=== PATIENT | female | born 1955 | race African-American/Black ===

== ENCOUNTER 2017-08-16 16:31 | Inpatient (IN) ==
[2017-08-16] MEDS ORDERED: hydrALAZINE 20 MG/1 ML VIAL IV STA (17:09)
[2017-08-16] MEDS ORDERED: hydrALAZINE 20 MG/1 ML VIAL ONE (17:09)
[2017-08-16] MEDS ORDERED: LORazepam 2 MG/1 ML VIAL ONE (17:48)
[2017-08-16] MEDS ORDERED: GLUCAGON 1 MG VIAL IM PRN (18:12)
[2017-08-16] MEDS ORDERED: DEXTROSE 50% 25 GM/50 ML VIAL IV PRN (18:12)
[2017-08-16] MEDS ORDERED: LORazepam 2 MG/1 ML VIAL IV STA (18:26)
[2017-08-16 18:28] LABS: ABG Base Excess 1.8 MMOL/L (-2.5-2.5); ABG Oxygen Saturation 97.8 % (95-100); ABG PCO2 40.7 MM HG (35-48); ABG PH 7.419 (7.35-7.45); ABG PO2 97.4 MM HG (80-95); ABG TCO2 23.7 MMOL/L (23-27); Allen Test Positive
[2017-08-16 18:36] LABS: Basophils % 0.3 % (0.0-0.8); Eosinophils % 0.6 % (0.00-10.9); Hematocrit 33.3 VOL% (35.7-47.0); Hemoglobin 11.1 GM/DL (12.0-16.0); Immature Granulocytes % 0.6 %; Immature Granulocytes Absolute 0.04 #; Lymphocytes % 13.3 % (21.3-54.2); Mean Corpuscular HGB Conc 33.3 GM/DL (32-36); Mean Corpuscular Hemoglobin 28 PG (27-34); Mean Corpuscular Volume 83.3 FL (87-102); Mean Platelet Volume 10.6 FL (9.6-12.0); Monocytes # 0.3 10*3/uL (0.11-0.8); Monocytes % 3.9 % (1.7-12.7); Neutrophils # 5.8 10*3/uL (1.4-7.4); Neutrophils % 81.3 % (38.7-73.9); Platelet Count 302 T/CUMM (130-400); Red Cell Distribution Width 17.3 % (9.3-17.3); White Blood Count 7.2 T/CUMM (4-12)
[2017-08-16 18:59] LABS: Lactic Acid 1.2 MMOL/L (0.4-2.0)
[2017-08-16 19:06] LABS: Alanine Aminotransferase 17 U/L (13-56); Albumin 2.7 G/DL (3.4-5.0); Alkaline Phosphatase 156 U/L (45-117); Aspartate Amino Transferase 21 U/L (0-37); Bilirubin,Total < 0.39 MG/DL (0.2-1.0); Blood Urea Nitrogen 31 MG/DL (7-18); Glucose 208 MG/DL (74-106); Osmolality,Calculated 291.4 MOS/KG (273-304); Potassium 3.8 MMOL/L (3.5-5.1); Sodium 140 MMOL/L (136-145); Total Protein 7.5 G/DL (6.4-8.3); Troponin I Only < 0.015 NG/ML (0.00-0.045)
[2017-08-16] MEDS ORDERED: cefTRIAXone 1,000 MG in SYRINGE 1 EACH IV SCH (19:45)
[2017-08-16 19:51] LABS: Apearance,Urine CLOUDY (Clear); Bacteria,Urine Few /HPF (Few); Bilirubin,Urine Negative (Negative); Blood, Urine Large mg/dL (Negative); Glucose,Urine (UA) >=500 mg/dL (Negative); Ketones,Urine Negative (Negative); Nitrite,Urine Positive (Negative); Protein,Urine >=500 MG/DL; RBC,Urine 968 /HPF (0-4); Urine Color Amber (Yellow); Urine Specific Gravity 1.018 (1.001-1.035); Urine Urobilinogen < 2.0 EU/DL (0.2-1.0); WBC,Urine 178 /HPF (0-6)
[2017-08-16 20:27] LABS: Barbiturates Screen,Urine Negative (Negative); Benzodiazepines Screen,Urine Negative (Negative); Cannabinoid Screen,Urine Negative (Negative); Opiate Screen,Urine Negative (Negative); Phencyclidine Screen,Urine Negative (Negative)
[2017-08-16] MEDS ORDERED: ONDANSETRON 4 MG/2 ML VIAL IV PRN (20:30)
[2017-08-16] MEDS ORDERED: INSULIN LISPRO 100 UNIT/ML SUBCUT SCH (21:00)
[2017-08-16] MEDS: NICARDIPINE IV SCH (21:21)
[2017-08-16] MEDS: SODIUM CHLORIDE 0.45% IV SCH (21:21)
[2017-08-16] MEDS: SODIUM CHLORIDE 0.9% 1,000 ML IV SCH (21:54)
[2017-08-17] MEDS: INSULIN LISPRO 100 UNIT/ML SUBCUT SCH ×4 (00:04→18:14)
[2017-08-17] MEDS: NICARDIPINE IV SCH ×2 (04:23→10:44)
[2017-08-17] MEDS: SODIUM CHLORIDE 0.45% IV SCH ×2 (04:23→10:44)
[2017-08-17 05:41] LABS: Basophils % 0.1 % (0.0-0.8); Hematocrit 30.5 VOL% (35.7-47.0); Hemoglobin 10.1 GM/DL (12.0-16.0); Immature Granulocytes % 0.7 %; Immature Granulocytes Absolute 0.07 #; Lymphocytes % 10.4 % (21.3-54.2); Mean Corpuscular HGB Conc 33.1 GM/DL (32-36); Mean Corpuscular Hemoglobin 28 PG (27-34); Mean Corpuscular Volume 83.8 FL (87-102); Mean Platelet Volume 11.2 FL (9.6-12.0); Monocytes # 0.3 10*3/uL (0.11-0.8); Monocytes % 3.4 % (1.7-12.7); Neutrophils # 8.2 10*3/uL (1.4-7.4); Neutrophils % 85.4 % (38.7-73.9); Platelet Count 329 T/CUMM (130-400); Red Blood Count 3.64 MC/CUMM (3.8-5.5); Red Cell Distribution Width 17.6 % (9.3-17.3); White Blood Count 9.6 T/CUMM (4-12)
[2017-08-17 06:08] LABS: Calcium 9.6 MG/DL (8.5-10.1); Osmolality,Calculated 300.1 MOS/KG (273-304); Potassium 3.9 MMOL/L (3.5-5.1)
[2017-08-17] MEDS: SODIUM CHLORIDE 0.9% 1,000 ML IV SCH ×3 (06:34→22:10)
[2017-08-17 08:09] LABS: Risk Ratio 2.64; Thyroid Stimulating Hormone 1.62 uIU/ml (0.358-3.74); VLDL CHOLESTEROL 17.8 MG/DL
[2017-08-17] MEDS ORDERED: LORazepam 2 MG/1 ML VIAL IV PRN (09:56)
[2017-08-17] MEDS: cefTRIAXone 2,000 MG in SYRINGE 1 EACH IV SCH ×2 (11:37→22:09)
[2017-08-17] MEDS: ACYCLOVIR INJ 500 MG in SODIUM CHLORIDE 0.9% 100 ML IV SCH ×2 (11:44→22:10)
[2017-08-17] MEDS: AMPICILLIN INJ 2,000 MG in SODIUM CHLORIDE 0.9% 100 ML IV SCH ×2 (11:44→17:59)
[2017-08-18] MEDS: INSULIN LISPRO 100 UNIT/ML SUBCUT SCH ×5 (01:09→21:55)
[2017-08-18] MEDS: AMPICILLIN INJ 2,000 MG in SODIUM CHLORIDE 0.9% 100 ML IV SCH ×3 (02:50→17:10)
[2017-08-18] MEDS: SODIUM CHLORIDE 0.9% 1,000 ML IV SCH ×2 (06:28→13:39)
[2017-08-18] MEDS ORDERED: INFLUENZA VIRUS VACCINE 0.5 ML SYRINGE IM ONE (09:23)
[2017-08-18] MEDS: METOPROLOL SUCCINATE XL 100 MG TABLET PO SCH (09:42)
[2017-08-18] MEDS: cefTRIAXone 2,000 MG in SYRINGE 1 EACH IV SCH ×2 (09:49→21:54)
[2017-08-18] MEDS: ACYCLOVIR INJ 500 MG in SODIUM CHLORIDE 0.9% 100 ML IV SCH ×2 (09:59→21:57)
[2017-08-18] MEDS: GABAPENTIN 300 MG CAPSULE PO SCH (21:54)
[2017-08-19] MEDS: SODIUM CHLORIDE 0.9% 1,000 ML IV SCH ×2 (00:20→18:01)
[2017-08-19] MEDS: AMPICILLIN INJ 2,000 MG in SODIUM CHLORIDE 0.9% 100 ML IV SCH ×3 (02:06→18:13)
[2017-08-19 05:42] LABS: Basophils % 0.5 % (0.0-0.8); Eosinophils # 0.2 10*3/uL (0.0-0.87); Hematocrit 30.2 VOL% (35.7-47.0); Hemoglobin 9.6 GM/DL (12.0-16.0); Immature Granulocytes % 0.2 %; Immature Granulocytes Absolute 0.01 #; Lymphocytes # 1.2 10*3/uL (1.4-4.0); Lymphocytes % 20.2 % (21.3-54.2); Mean Corpuscular HGB Conc 31.8 GM/DL (32-36); Mean Corpuscular Hemoglobin 28 PG (27-34); Mean Corpuscular Volume 86.5 FL (87-102); Mean Platelet Volume 10.1 FL (9.6-12.0); Monocytes # 0.6 10*3/uL (0.11-0.8); Monocytes % 10.1 % (1.7-12.7); Neutrophils # 3.8 10*3/uL (1.4-7.4); Platelet Count 239 T/CUMM (130-400); Red Blood Count 3.49 MC/CUMM (3.8-5.5); Red Cell Distribution Width 17.5 % (9.3-17.3); White Blood Count 5.7 T/CUMM (4-12)
[2017-08-19 06:16] LABS: Alanine Aminotransferase 13 U/L (13-56); Alkaline Phosphatase 102 U/L (45-117); Aspartate Amino Transferase 15 U/L (0-37); Bilirubin,Total < 0.39 MG/DL (0.2-1.0); Blood Urea Nitrogen 42 MG/DL (7-18); Calcium 8.7 MG/DL (8.5-10.1); Glucose 188 MG/DL (74-106); Osmolality,Calculated 296.3 MOS/KG (273-304); Potassium 3.7 MMOL/L (3.5-5.1); Sodium 141 MMOL/L (136-145); Total Protein 5.3 G/DL (6.4-8.3)
[2017-08-19] MEDS: ACYCLOVIR INJ 500 MG in SODIUM CHLORIDE 0.9% 100 ML IV SCH ×2 (11:10→21:27)
[2017-08-19] MEDS: METOPROLOL SUCCINATE XL 100 MG TABLET PO SCH (11:13)
[2017-08-19] MEDS: GABAPENTIN 300 MG CAPSULE PO SCH ×2 (11:13→21:25)
[2017-08-19] MEDS: CLOPIDOGREL 75 MG TABLET PO SCH (11:13)
[2017-08-19] MEDS: INSULIN LISPRO 100 UNIT/ML SUBCUT SCH ×4 (11:15→21:26)
[2017-08-19] MEDS: cefTRIAXone 2,000 MG in SYRINGE 1 EACH IV SCH ×2 (11:16→21:29)
[2017-08-19] MEDS ORDERED: NIFEdipine 10 MG CAPSULE PO PRN (11:58)
[2017-08-19] MEDS: cloNIDine 0.1 MG TABLET PO SCH ×2 (12:38→21:25)
[2017-08-20] MEDS: hydrALAZINE 20 MG/1 ML VIAL IV PRN ×2 (00:17→12:16)
[2017-08-20] MEDS: SODIUM CHLORIDE 0.9% 1,000 ML IV SCH (02:32)
[2017-08-20] MEDS: AMPICILLIN INJ 2,000 MG in SODIUM CHLORIDE 0.9% 100 ML IV SCH ×3 (02:52→18:46)
[2017-08-20 05:57] LABS: Basophils % 0.2 % (0.0-0.8); Eosinophils # 0.2 10*3/uL (0.0-0.87); Eosinophils % 3.7 % (0.00-10.9); Hematocrit 29.4 VOL% (35.7-47.0); Hemoglobin 9.3 GM/DL (12.0-16.0); Immature Granulocytes % 0.4 %; Immature Granulocytes Absolute 0.02 #; Lymphocytes # 1.3 10*3/uL (1.4-4.0); Lymphocytes % 25.6 % (21.3-54.2); Mean Corpuscular HGB Conc 31.6 GM/DL (32-36); Mean Corpuscular Hemoglobin 27 PG (27-34); Mean Corpuscular Volume 86.2 FL (87-102); Mean Platelet Volume 11.1 FL (9.6-12.0); Monocytes # 0.5 10*3/uL (0.11-0.8); Monocytes % 9.8 % (1.7-12.7); Neutrophils # 3.1 10*3/uL (1.4-7.4); Neutrophils % 60.3 % (38.7-73.9); Platelet Count 259 T/CUMM (130-400); Red Blood Count 3.41 MC/CUMM (3.8-5.5); Red Cell Distribution Width 17.4 % (9.3-17.3); White Blood Count 5.1 T/CUMM (4-12)
[2017-08-20 06:32] LABS: Calcium 8.9 MG/DL (8.5-10.1); Magnesium 2.2 MG/DL (1.8-2.4); Osmolality,Calculated 298.7 MOS/KG (273-304); Potassium 3.9 MMOL/L (3.5-5.1)
[2017-08-20] MEDS: INSULIN LISPRO 100 UNIT/ML SUBCUT SCH ×5 (08:47→22:11)
[2017-08-20] MEDS: CLOPIDOGREL 75 MG TABLET PO SCH (08:49)
[2017-08-20] MEDS: ATORVASTATIN 20 MG TABLET PO SCH (08:49)
[2017-08-20] MEDS: METOPROLOL SUCCINATE XL 100 MG TABLET PO SCH (08:49)
[2017-08-20] MEDS: GABAPENTIN 300 MG CAPSULE PO SCH ×2 (08:49→21:23)
[2017-08-20] MEDS: cloNIDine 0.1 MG TABLET PO SCH ×2 (08:49→21:23)
[2017-08-20] MEDS: ACYCLOVIR INJ 500 MG in SODIUM CHLORIDE 0.9% 100 ML IV SCH ×2 (08:50→21:31)
[2017-08-20] MEDS: cefTRIAXone 2,000 MG in SYRINGE 1 EACH IV SCH ×2 (10:02→21:26)
[2017-08-20] MEDS ORDERED: NITROGLYCERIN SL 0.4 MG TABLET SL PRN (12:50)
[2017-08-20] MEDS ORDERED: FUROSEMIDE 40 MG/4 ML VIAL IV ONE (15:50)
[2017-08-20] MEDS: LISINOPRIL/HCTZ 20-12.5 MG TABLET PO SCH (18:41)
[2017-08-20] MEDS: INSULIN GLARGINE 100 UNIT/ML SUBCUT SCH (21:24)
[2017-08-21] MEDS: AMPICILLIN INJ 2,000 MG in SODIUM CHLORIDE 0.9% 100 ML IV SCH ×3 (02:18→17:26)
[2017-08-21 05:29] LABS: Basophils % 0.3 % (0.0-0.8); Eosinophils # 0.3 10*3/uL (0.0-0.87); Eosinophils % 7.8 % (0.00-10.9); Hematocrit 29.6 VOL% (35.7-47.0); Hemoglobin 9.4 GM/DL (12.0-16.0); Immature Granulocytes % 0.5 %; Immature Granulocytes Absolute 0.02 #; Lymphocytes # 1.2 10*3/uL (1.4-4.0); Lymphocytes % 31.1 % (21.3-54.2); Mean Corpuscular HGB Conc 31.8 GM/DL (32-36); Mean Corpuscular Hemoglobin 27 PG (27-34); Mean Corpuscular Volume 86.3 FL (87-102); Mean Platelet Volume 10.8 FL (9.6-12.0); Monocytes # 0.4 10*3/uL (0.11-0.8); Neutrophils % 50.3 % (38.7-73.9); Platelet Count 259 T/CUMM (130-400); Red Blood Count 3.43 MC/CUMM (3.8-5.5); Red Cell Distribution Width 17.5 % (9.3-17.3)
[2017-08-21 06:04] LABS: Calcium 8.8 MG/DL (8.5-10.1); Magnesium 2.1 MG/DL (1.8-2.4); Osmolality,Calculated 294.8 MOS/KG (273-304); Potassium 3.6 MMOL/L (3.5-5.1)
[2017-08-21] MEDS: INSULIN LISPRO 100 UNIT/ML SUBCUT SCH ×5 (08:00→21:45)
[2017-08-21] MEDS: cloNIDine 0.1 MG TABLET PO SCH ×2 (10:18→21:41)
[2017-08-21] MEDS: FUROSEMIDE 40 MG TABLET PO SCH (10:18)
[2017-08-21] MEDS: ASPIRIN 325 MG TABLET PO SCH (10:18)
[2017-08-21] MEDS: amLODIPine 5 MG TABLET PO SCH (10:19)
[2017-08-21] MEDS: GABAPENTIN 300 MG CAPSULE PO SCH ×2 (10:19→21:41)
[2017-08-21] MEDS: CLOPIDOGREL 75 MG TABLET PO SCH (10:19)
[2017-08-21] MEDS: ATORVASTATIN 20 MG TABLET PO SCH (10:19)
[2017-08-21] MEDS: POTASSIUM CITRATE 10 MEQ TABLET PO SCH (10:20)
[2017-08-21] MEDS: METOPROLOL SUCCINATE XL 100 MG TABLET PO SCH (10:20)
[2017-08-21] MEDS: LISINOPRIL/HCTZ 20-12.5 MG TABLET PO SCH (10:20)
[2017-08-21] MEDS: SERTRALINE 50 MG TABLET PO SCH (10:21)
[2017-08-21] MEDS: ACYCLOVIR INJ 500 MG in SODIUM CHLORIDE 0.9% 100 ML IV SCH (10:22)
[2017-08-21] MEDS: hydrALAZINE 20 MG/1 ML VIAL IV PRN (12:28)
[2017-08-21] MEDS: cefTRIAXone 2,000 MG in SYRINGE 1 EACH IV SCH (14:44)
[2017-08-21] MEDS: CLOTRIMAZOLE/BETAMETHASONE CREAM 15 GM TUBE TOP SCH (14:45)
[2017-08-21] MEDS: INSULIN GLARGINE 100 UNIT/ML SUBCUT SCH (21:45)
[2017-08-22] MEDS: cefTRIAXone 2,000 MG in SYRINGE 1 EACH IV SCH ×3 (02:22→23:56)
[2017-08-22] MEDS: ACYCLOVIR INJ 500 MG in SODIUM CHLORIDE 0.9% 100 ML IV SCH ×3 (02:27→22:59)
[2017-08-22] MEDS: CLOTRIMAZOLE/BETAMETHASONE CREAM 15 GM TUBE TOP SCH ×3 (02:57→23:04)
[2017-08-22] MEDS: AMPICILLIN INJ 2,000 MG in SODIUM CHLORIDE 0.9% 100 ML IV SCH ×3 (03:42→17:40)
[2017-08-22] MEDS: INSULIN LISPRO 100 UNIT/ML SUBCUT SCH ×5 (08:15→22:59)
[2017-08-22] MEDS: ASPIRIN 325 MG TABLET PO SCH (08:17)
[2017-08-22] MEDS: ATORVASTATIN 20 MG TABLET PO SCH (08:18)
[2017-08-22] MEDS: cloNIDine 0.1 MG TABLET PO SCH ×2 (08:18→22:58)
[2017-08-22] MEDS: FUROSEMIDE 40 MG TABLET PO SCH (08:18)
[2017-08-22] MEDS: CLOPIDOGREL 75 MG TABLET PO SCH (08:19)
[2017-08-22] MEDS: GABAPENTIN 300 MG CAPSULE PO SCH ×2 (08:19→22:58)
[2017-08-22] MEDS: amLODIPine 5 MG TABLET PO SCH (08:19)
[2017-08-22] MEDS: LISINOPRIL/HCTZ 20-12.5 MG TABLET PO SCH (08:20)
[2017-08-22] MEDS: METOPROLOL SUCCINATE XL 100 MG TABLET PO SCH (08:20)
[2017-08-22] MEDS: POTASSIUM CITRATE 10 MEQ TABLET PO SCH (08:20)
[2017-08-22] MEDS: SERTRALINE 50 MG TABLET PO SCH (08:21)
[2017-08-22] MEDS: INSULIN GLARGINE 100 UNIT/ML SUBCUT SCH (22:58)
[2017-08-23] MEDS: AMPICILLIN INJ 2,000 MG in SODIUM CHLORIDE 0.9% 100 ML IV SCH ×2 (02:59→09:45)
[2017-08-23] MEDS: INSULIN LISPRO 100 UNIT/ML SUBCUT SCH ×2 (08:25→12:27)
[2017-08-23] MEDS: ASPIRIN 325 MG TABLET PO SCH (08:25)
[2017-08-23] MEDS: FUROSEMIDE 40 MG TABLET PO SCH (08:26)
[2017-08-23] MEDS: cloNIDine 0.1 MG TABLET PO SCH (08:26)
[2017-08-23] MEDS: ATORVASTATIN 20 MG TABLET PO SCH (08:26)
[2017-08-23] MEDS: CLOTRIMAZOLE/BETAMETHASONE CREAM 15 GM TUBE TOP SCH (08:27)
[2017-08-23] MEDS: amLODIPine 5 MG TABLET PO SCH (08:27)
[2017-08-23] MEDS: GABAPENTIN 300 MG CAPSULE PO SCH (08:27)
[2017-08-23] MEDS: SERTRALINE 50 MG TABLET PO SCH (08:28)
[2017-08-23] MEDS: METOPROLOL SUCCINATE XL 100 MG TABLET PO SCH (08:28)
[2017-08-23] MEDS: CLOPIDOGREL 75 MG TABLET PO SCH (08:28)
[2017-08-23] MEDS: LISINOPRIL/HCTZ 20-12.5 MG TABLET PO SCH (08:28)
[2017-08-23] MEDS: POTASSIUM CITRATE 10 MEQ TABLET PO SCH (08:28)
[2017-08-23] MEDS: cefTRIAXone 2,000 MG in SYRINGE 1 EACH IV SCH (08:29)
[2017-08-23] MEDS: ACYCLOVIR INJ 500 MG in SODIUM CHLORIDE 0.9% 100 ML IV SCH (08:39)
[2017-08-23 12:23] VITALS: BP 162/84
== END 2017-08-23 13:48 | disposition home or self-care (01) | DRG 49 ==
LOC: EDBD → EDUNIT# → N.ED 16:31 → N.EDINP 17:05 → N.ICU 19:43 → N.2E 08-18 14:37
PROVIDERS: ADMIT Internal Medicine; ATTEND Internal Medicine